=== PATIENT | male | born 1985 | race Caucasian/White ===

== ENCOUNTER 2016-12-03 10:59 | Emergency (ER) | payer BC ==
--- NOTE | 2016-12-03 11:30 | EDM.PDOC ---
<Brigid Nicole - Last Filed: 12/03/16 11:55> ED HPI Trauma - General Chief Complaint: Lower Extremity Injury/Pain Stated Complaint: TWISTED LT ANKLE Time Seen by Provider: 12/03/16 11:08 Source: Reports: Patient History Limitations: Reports: No limitations - History of Present Illness INITIAL COMMENTS - FREE TEXT/NARRATIVE: Alfonso presents to ED today with complaint of left ankle pain. Patient voices was climbing into truck at home in his yard and slipped on a patch of ice by his truck twisting his Lt ankle outward. Denies falling. Patient states "i decided to come in when i felt my ankle swell up in the boots". Describes pain as a constant throbbing pain that is sharp with movement. He also voices having a numb tingling sensation going up his [place] to mid point on his left foot. He took OTC Ibuprofen 2 tablets an hour ago. Symptom Onset Date: 12/03/16 Occurred When: this morning Occurred Where: home Method of Injury: other (slipped on ice whiles getting into truck and twisted ankle but did not fall) Severity: severe (rates pain as 10/10) Pain/Injury Location: Reports: lower extremity, left Consciousness: Reports: no loss of consciousness, remembers incident Associated Symptoms: Reports: trouble walking (voices sharp pains with movement) . Denies: chest pain, confusion, dizziness, shortness of breath, vision changes Allergies/ADRs: Allergies No Known Allergies Allergy (Verified 12/03/16 11:17) Home Medications: Ambulatory Orders Baclofen 5 mg PO DAILY 12/03/16 [Confirmed 12/03/16] Omeprazole 40 mg PO DAILY 12/03/16 [Confirmed 12/03/16] Review of Systems - Review of Systems Review Of Systems: ROS reveals no pertinent complaints other than HPI. Trauma Exam - Physical Exam Exam: See Below Exam Limited By: No limitations General Appearance: Reports: alert, WD/WN, no apparent distress Head: Reports: atraumatic, normocephalic Ears: Reports: normal external exam, hearing grossly normal Nose: Reports: normal inspection Throat/Mouth: Reports: Normal inspection, Normal voice, No airway compromise Neck: Reports: non-tender Respiratory Exam: Reports: no respiratory distress, lungs clear, normal breath sounds, no accessory muscle use, chest non-tender Cardiovascular: Reports: normal peripheral pulses, regular rate, rhythm, no JVD , no murmur, no rub GI/Abdominal: Reports: normal bowel sounds, soft, non tender (Male) Exam: Deferred Rectal (Males) Exam: Deferred Extremities: Reports: pain with movement, pedal edema, tenderness, other ( slight edema but no erythema to Lt ankle, tender with paplation, pulse intact and equal bilaterally. Plantaflexion, eversion and inversion without difficulty but some difficulty with dorsiflexion. ) Neurologic: Reports: no motor/sensory deficits, alert, normal mood/affect, oriented x 3, other Skin: Reports: Normal color, Warm/dry Course - Vital Signs Last Recorded V/S: Last Vital Signs Temp 36.7 C 12/03/16 11:18 Pulse 98 12/03/16 11:18 Resp 18 12/03/16 11:18 BP 154/91 H 12/03/16 11:18 Pulse Ox 97 12/03/16 11:18 - Orders/Labs/Meds Orders: Active Orders 24 hr Category Date Time Status Ankle Min 3V Lt [CR] Stat Exams 12/03/16 11:13 Taken Departure - Departure Disposition: Home, Self-Care 01 Clinical Impression: Sprain Forms: ED Department Discharge Additional Instructions: Rest ice ibuprofen Stirrup brace Followup with primary care in 2 weeks - My Orders Last 24 Hours: My Active Orders 12/03/16 11:13 Ankle Min 3V Lt [CR] Stat - Assessment/Plan Last 24 Hours: My Active Orders 12/03/16 11:13 Ankle Min 3V Lt [CR] Stat <Ebenezer Monahan - Last Filed: 12/03/16 12:08> ED HPI Trauma - History of Present Illness INITIAL COMMENTS - FREE TEXT/NARRATIVE: Is seen and examined the patient agree with above Assessment Ankle sprain Plan Rest ice ibuprofen Stirrup brace Followup with primary care in 2 weeks Departure - Departure Time of Disposition: 12:08 Condition: good
[2016-12-03 12:39] VITALS: BP 137/93
--- NOTE | 2016-12-05 17:33 | CR ---
EXAM DATE: 12/03/16 PATIENT'S AGE: 31 Patient: EMILIO BELLE Facility: [place], [place] Site . Site : 1985 Study: XRay Extremity Left ankle [id number]/4/2017 11:41:15 AM Ordering Physician: Doctor Long Final Report: HISTORY: Left ankle pain. Fall. TECHNIQUE: Three views of the left ankle. COMPARISON: No prior. FINDINGS: There is no acute fracture or malalignment. Joint spaces maintained. No radiopaque foreign body or soft tissue gas. IMPRESSION: No acute fracture or malalignment. Dictated by Sylvain Rodriguez MD @ 12/03/2016 12:01:58 PM Dictated by: Sylvain Rodriguez MD @ 12/03/2016 12:02:03 (Electronic Signature) Report Signed by Proxy and Original Signed Document filed in the Medical Record. JOELLEN
== END 2016-12-03 12:35 | disposition home or self-care (01) ==
LOC: MW.ED 10:59
DX: S93.402A Sprain of unspecified ligament of left ankle, initial encounter (principal); Z79.899 Other long term (current) drug therapy; W00.0XXA Fall on same level due to ice and snow, initial encounter
CPT/HCPCS: 73610-26-LT; 73610-LT; 99282; 99283

== ENCOUNTER 2018-06-01 22:46 | Emergency (ER) | payer BC ==
--- NOTE | 2018-06-01 23:05 | EDM.PDOC ---
ED HPI GENERAL MEDICAL PROBLEM - General Chief Complaint: Lower Extremity Injury/Pain Stated Complaint: PT RT BIG TOE HURTING Time Seen by Provider: 06/01/18 22:56 - History of Present Illness INITIAL COMMENTS - FREE TEXT/NARRATIVE: HISTORY AND PHYSICAL: History of present illness: Patient 33-year-old male presents with a concern of possible infection to the first digit of his right foot to spin worse over the last several days he denies fever chills nausea vomiting trauma or other concern he denies diabetes Review of systems: As per history of present illness and below otherwise all systems reviewed and negative. Past medical history: As per history of present illness and as reviewed below otherwise noncontributory. Surgical history: As per history of present illness and as reviewed below otherwise noncontributory. Social history: No reported history of drug or alcohol abuse. Family history: As per history of present illness and as reviewed below otherwise noncontributory. Physical exam: HEENT: Atraumatic, normocephalic, pupils reactive, negative for conjunctival pallor or scleral icterus, mucous membranes moist, throat clear, neck supple, nontender, trachea midline. Lungs: Clear to auscultation, breath sounds equal bilaterally, chest nontender. Heart: S1S2, regular, negative for clicks, rubs, or JVD. Abdomen: Soft, nondistended, nontender. Negative for masses or hepatosplenomegaly. Negative for costovertebral tenderness. Pelvis: Stable nontender. Genitourinary: Deferred. Rectal: Deferred. 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 There is no fluctuance no evidence of paronychia at this time Neuro: Awake, alert, oriented. Cranial nerves II through XII unremarkable. Cerebellum unremarkable. Motor and sensory unremarkable throughout. Exam nonfocal. Diagnostics: Deferred Therapeutics: None Impression: #1 cellulitis first digit right foot Definitive disposition and diagnosis as appropriate pending reevaluation and review of above. right big toe Pain Score (Numeric/FACES): 10 - Related Data Allergies Allergy/AdvReac Type Severity Reaction Status Date / Time No Known Allergies Allergy Verified 06/01/18 22:54 Past Medical History Gastrointestinal History: Reports: PUD Musculoskeletal History: Reports: Other (See Below) Other Musculoskeletal History: back spasms Social & Family History - Family History Family Medical History: Noncontributory - Caffeine Use Caffeine Use: Reports: Coffee, Energy Drinks, Soda Review of Systems - Review of Systems Review Of Systems: ROS reveals no pertinent complaints other than HPI. ED EXAM, GENERAL - Physical Exam Exam: See Below (See dictation) Course - Vital Signs Last Recorded V/S: Last Vital Signs Temp 36.4 C 06/01/18 22:52 Pulse 124 H 06/01/18 22:52 Resp 18 06/01/18 22:52 BP 187/112 H 06/01/18 22:52 Pulse Ox 100 06/01/18 22:52 Departure - Departure Time of Disposition: 23:03 Disposition: Home, Self-Care 01 Condition: Good Clinical Impression: Cellulitis - Discharge Information *PRESCRIPTION DRUG MONITORING PROGRAM REVIEWED*: Not Applicable *COPY OF PRESCRIPTION DRUG MONITORING REPORT IN PATIENT KODY: Not Applicable Additional Instructions: The following information is given to patients seen in the emergency department who are being discharged to home. This information is to outline your options for follow-up care. We provide all patients seen in our emergency department with a follow-up referral. The need for follow-up, as well as the timing and circumstances, are variable depending upon the specifics of your emergency department visit. If you don't have a primary care physician on staff, we will provide you with a referral. We always advise you to contact your personal physician following an emergency department visit to inform them of the circumstance of the visit and for follow-up with them and/or the need for any referrals to a consulting specialist. The emergency department will also refer you to a specialist when appropriate. This referral assures that you have the opportunity for followup care with a specialist. All of these measure are taken in an effort to provide you with optimal care, which includes your followup. Under all circumstances we always encourage you to contact your private physician who remains a resource for coordinating your care. When calling for followup care, please make the office aware that this follow-up is from your recent emergency room visit. If for any reason you are refused follow-up, please contact the [facility] emergency department at and asked to speak to the emergency department charge nurse. Blanka Kohli [facility] - Podiatry [address] [place] [id number] Fax: [phone] Bactrim clindamycin Ultram as prescribed follow-up podiatry and primary medical doctor as discussed call to schedule appointment return as needed as discussed
[2018-06-01 23:12] VITALS: BP 178/100
== END 2018-06-01 23:10 | disposition home or self-care (01) ==
LOC: MW.ED 22:46
DX: L03.115 Cellulitis of right lower limb (principal)
CPT/HCPCS: 99283

== ENCOUNTER 2023-03-11 17:38 | Emergency (ER) | payer BC ==
[2023-03-11 20:57] VITALS: BP 134/80; PULSE 86
== END 2023-03-11 20:00 | disposition home or self-care (01) ==
LOC: MW.ED 17:38
DX: M76.71 Peroneal tendinitis, right leg (principal); I10 Essential (primary) hypertension
CPT/HCPCS: 73610-26-RT; 73610-RT; 73620-26-RT; 73620-RT; 99283